=== PATIENT | female | born 2000 | race Caucasian/White ===

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

== ENCOUNTER 2020-06-04 16:39 | Emergency (ER) | payer MEDICAID, OTHER ==
[~2020-06-04] VITALS: Ht 154.9 cm; Wt 56.8 kg
[~2020-06-04 16:39] MED LIST changes: -NOCURR; +PARO10TA89 PO
[2020-06-04] MEDS ORDERED: ACET-2865 PO (16:47)
[2020-06-04] MEDS ORDERED: KETOROLAC TROMETHAMINE 30 MG/ML VIAL IVP ONE (17:30)
[2020-06-04] MEDS ORDERED: SODIUM CHLORIDE 0.9% 1,000 ML IV ONE (17:30)
[2020-06-04 17:40] LABS: BASOPHILS % (AUTO) 0.3 % (0.0-2.0); EOSINOPHILS % (AUTO) 0.4 % (1.0-6.0); HEMATOCRIT 39.1 % (36-46); HEMOGLOBIN 13.1 g/dL (12.0-16.0); LYMPHOCYTES # (AUTO) 1.8 K/uL (1.0-4.8); LYMPHOCYTES % (AUTO) 24.4 % (22.0-44.0); MEAN CORPUSCULAR HEMOGLOBIN 30.5 pg (26.0-34.0); MEAN CORPUSCULAR HGB CONC 33.6 G/dL (31.0-37.0); MEAN CORPUSCULAR VOLUME 91 fL (80-100); MONOCYTES # (AUTO) 0.6 K/uL (0.1-1.0); MONOCYTES % (AUTO) 7.9 % (2.0-9.0); PLATELET COUNT (AUTO) 325 K/uL (150-450); RED CELL DISTRIBUTION WIDTH 13.1 % (11.5-14.5)
[2020-06-04 17:58] LABS: ANION GAP 9 mmol/L (8-16); CALCIUM, TOTAL 9.7 mg/dL (8.8-10.5); CARBON DIOXIDE 26 mmol/L (22-29); CHLORIDE 101 mmol/L (98-107); CREATININE 0.66 mg/dL (0.60-1.30); GLOMERULAR FILTR. RATE CALC > 60 mL/min (>60); GLUCOSE,RANDOM 95 mg/dL (70-110); POTASSIUM 3.7 mmol/L (3.5-5.1); SODIUM SERUM 136 mmol/L (136-145); UREA NITROGEN, BLOOD 13 mg/dL (7-18)
[2020-06-04 18:09] LABS: ALANINE AMINOTRANSFERASE 85 U/L (12-78); ALBUMIN 4.5 g/dL (3.4-5.0); ALKALINE PHOSPHATASE 104 U/L (46-116); ASPARTATE AMINOTRANSFERASE 38 U/L (15-37); BILIRUBIN,TOTAL 0.3 mg/dL (0.1-1.0); HCG,QUANTITATIVE < 1 mIU/mL (0-6); LIPASE 56 U/L (73-393); TOTAL PROTEIN, SERUM 8.1 g/dL (6.4-8.2)
[2020-06-04] MEDS ORDERED: SODIUM CHLORIDE 0.9% 100 ML ONE (18:16)
[2020-06-04] MEDS ORDERED: IOVERSOL 350 MG/ML 100 ML VIAL ONE (18:16)
[2020-06-04 19:49] LABS: APPEARANCE,URINE CLEAR (CLEAR); BILIRUBIN,URINE NEGATIVE (NEGATIVE); GLUCOSE, URINE (UA) NEGATIVE (NEGATIVE); KETONES,URINE NEGATIVE (NEGATIVE); LEUKOCYTE ESTERASE ,URINE NEGATIVE (NEGATIVE); NITRATE,URINE NEGATIVE (NEGATIVE); OCCULT BLOOD,URINE MODERATE (NEGATIVE); PH,URINE 6.5 (5.0-8.0); PROTEIN,URINE NEGATIVE (NEGATIVE); UROBILINOGEN,URINE 0.2 mg/dL (<=1.0)
[2020-06-04 20:07] LABS: BACTERIA,URINE None Seen /HPF (None Seen); SQUAMOUS EPITHELIAL CELL,UR Moderate /LPF (None Seen); WBC,URINE 0-2 /HPF (0-5)
[2020-06-04 21:00] VITALS: BP 116/69
== END 2020-06-04 21:20 | disposition home or self-care (01) ==
LOC: EMS 16:39
DX: N20.0 Calculus of kidney (principal); F41.9 Anxiety disorder, unspecified; Z88.0 Allergy status to penicillin
CPT/HCPCS: 36415; 74177; 76830; 76856; 80053; 81001; 83690; 84702; 85025; 96360; 99285; J1885; J7030; J7050; Q9967